=== PATIENT | male | born 1950 | race Caucasian/White ===

== ENCOUNTER 2019-12-30 04:00 | Inpatient (IN) | payer MEDICARE, OTHER ==
[2019-12-30] MEDS ORDERED: Atropine Sulfate 1 mg/10 ml Syringe ONE ×2 (04:07→10:05)
[2019-12-30] MEDS ORDERED: Norepinephrine 8 MG/0.9% NS 250 ML ONE (04:22)
[2019-12-30 04:36] LABS: #Basophils 0.1 thou/uL (0.0-0.2); #Eosinphils 0.3 thou/uL (0.0-0.7); #Lymphocytes 2.2 thou/uL (1.20-3.40); #Monocytes 0.8 thou/uL (0.11-0.59); #Neutrophils 6.8 thou/uL (1.40-6.50); %Basophils 1.1 % (0.0-1.0); %Lymphocytes 21.7 % (21.0-51.0); %Monocytes 7.8 % (0.0-10.0); %Neutrophils 66.4 % (42.0-75.0); Hemoglobin 7.4 g/dL (14.0-18.0); Mean Corpuscular HGB CONC 32.2 g/dL (32.0-36.0); Mean Corpuscular Hemoglobin 30.6 pg (27.0-31.0); Mean Platelet Volume 7.8 fL (7.4-10.4); Platelet Count 421 thou/uL (130-400); RBC Distribution Width 13.6 % (11.5-14.5); Red Blood Cell (RBC) Count 2.43 mill/uL (4.70-6.10); White Blood Cell (WBC) Count 10.2 thou/uL (4.8-10.8)
[2019-12-30] MEDS ORDERED: EPINEPHrine 1 MG/10 ML Abboject SYRINGE ONE ×2 (04:41→10:05)
[2019-12-30 04:47] LABS: INR-International Normal Ratio 1.4; PTT 35.6 sec (22.9-36.1); Prothrombin Time 17.5 sec (12.0-14.7)
[2019-12-30 04:53] LABS: ALT (SGPT) 26 U/L (8-55); AST (SGOT) 14 U/L (5-34); Albumin 2.3 g/dL (3.4-4.8); Alkaline Phosphatase 83 U/L (40-110); Anion Gap 20 mmol/L (10-20); BUN (Urea Nitrogen) 8 mg/dL (8.4-25.7); Bilirubin, Total 0.3 mg/dL (0.2-1.2); CK (CPK) 33 U/L (30-200); Calc. Creatinine Clearance 0 mL/min (70-130); Carbon Dioxide 13 mmol/L (23-31); Chloride 108 mmol/L (98-107); Estimated GFR-MDRD 60; Globulin 2.3 g/dL (2.4-3.5); Glucose 303 mg/dL (80-115); Potassium 3.4 mmol/L (3.5-5.1); Protein, Total 4.6 g/dL (5.8-8.1); Sodium 138 mmol/L (136-145)
[2019-12-30] MEDS ORDERED: EPINEPHrine 4 MG in Dextrose 5% in Water 250 ML IV SCH (05:00)
[2019-12-30 05:20] LABS: Actual Bicarbonate (HCO3a) 12.7 mEq/L (22-28); Base Excess (BEa) -13.3 mEq/L (-2.0 to +3.0); CO2 Tension 29.7 mmHg (35.0-45.0); Calcium, Ionized (arterial) 0.88 mmol/L (1.12-1.30); Carboxyhemoglobin (COHb) 0.7 gm% (0.0-3.0); Hemoglobin (Hb) 9.1 g/dL (14.0-18.0); O2 Tension (PaO2), arterial 435.3 mmHg (> 80.0)
[2019-12-30 05:21] LABS: Puncture Site RFA; pH, Arterial 7.25 (7.35-7.45)
[2019-12-30 05:22] LABS: ALV-art Gradient 240.575 (0-20)
[2019-12-30] MEDS ORDERED: Fentanyl 100 MCG/2 ML VIAL ONE (05:52)
[2019-12-30] MEDS ORDERED: Sodium Bicarb 50 MEQ/50 ML Abboject 8.4% SYRINGE ONE ×2 (06:18→10:05)
[2019-12-30] MEDS ORDERED: Norepinephrine 4 MG/4 ML VIAL ONE (06:34)
[2019-12-30] MEDS ORDERED: Fentanyl 250 MCG/5 ML VIAL ONE (06:34)
[2019-12-30] MEDS ORDERED: Midazolam HCl 2 mg/2 ml Vial ONE ×2 (06:34→08:44)
[2019-12-30] MEDS ORDERED: Sodium Bicarbonate 2.5 MEQ/5 ML VIAL ONE (06:58)
[2019-12-30] MEDS ORDERED: Sodium Bicarb 50 MEQ/50 ML VIAL ONE ×2 (06:59→08:40)
--- NOTE | 2019-12-30 07:29 | CON ---
DATE OF CONSULTATION: 12/30/2019 CONSULTING PHYSICIAN: Juan Tovar DO REASON FOR CONSULTATION: Acute abdomen, suggestion of bowel infarction. HISTORY OF PRESENT ILLNESS: The patient is a 69-year-old critically ill white male. He has a recent history of surgery for an aortic aneurysm in [place]. The family initially and said that this was a week ago, but they now believe that it may have been two weeks ago. He apparently had a couple of stents that had been placed by business services specialist sales, that were apparently infected and the family believes that these may have been removed at the time of his surgery. It sounds therefore like he may have had an aorto bi-iliac bypass. He also had his spleen removed while he was at the hospital in [place]. He was eventually discharged home where they tell me that he was doing "fine." At about 3:00 this morning, while he was getting up to go to the bathroom, he collapsed and they were unable to get him up after that. There were times when he appeared to be gasping for air thereafter. He was transported by ambulance to the hospital. He was noted to have a complete systemic collapse and he had massive transfusion protocol initiated as well as CPR. He had compressions for about 10 minutes along with numerous pressors. During the course of his transfusion, he apparently received 6 units of packed red blood cells and 6 units of FFP. Significant pressors were utilized. They eventually got back a pulse and with high-dose pressors (Levophed and epinephrine), he stabilized at a tachycardic rate of about 120 to 130. It was at this point that he was stable for a CAT scan, which was obtained, which revealed substantial fluid within the abdomen as well as suggestion of pneumatosis in several areas of the GI tract as well as portal venous gas within the liver. As he still had a spontaneous rhythm and had been resuscitated, I was contacted for surgical advice. LABORATORY DATA: Labs obtained at 4:00 this morning when he arrived, showed that he was severely acidotic with a CO2 level of 13 and a lactate of 11. His liver function tests were essentially normal. His creatinine was a little bit elevated at 1.2. His hemoglobin was low at 7.4. His blood gas, which was obtained at 4:45 showed a gas of 7.25 for the pH, pCO2 of 30, and a pO2 of 430. PAST MEDICAL HISTORY: Significant for peripheral vascular disease and aortic aneurysm and a long history of tobacco abuse. PAST SURGICAL HISTORY: He apparently has had multiple back operations including some form of a fusion. He had the abdominal aortic aneurysm surgery 1 to 2 weeks ago. MEDICATIONS: I have a list of medications that are unavailable as I am dictating this. He is on antihypertensive medications and Plavix. ALLERGIES: NO KNOWN DRUG ALLERGIES. PERSONAL AND SOCIAL HISTORY: He is , with 2 children, and they were all present at bedside. He has a long history of being a heavy smoker and he was smoking up until this recent surgery as well. He used to be a heavy drinker, not a long time. He lives in [place]. REVIEW OF SYSTEMS: Unobtainable. FAMILY HISTORY: Noncontributory. PHYSICAL EXAMINATION: VITAL SIGNS: He is currently afebrile with a pulse of 128, blood pressure is most recently 150/100, oxygen saturations 100% on a ventilator. LUNGS: Appropriately clear to auscultation. CARDIAC: Tachycardic, but regular rhythm. ABDOMEN: Appears to be very firm. Byram still intact in the midline incision. : Rizzo catheter is in place. EXTREMITIES: Unremarkable. ASSESSMENT: The patient who is critically ill and nearly terminal with an apparent intraabdominal catastrophe. In light of the portal venous gas and the changes on the CT scan, I suspect he has a bowel infarction. How much of his bowel is infarcted, to what extent is of course impossible to discern. I have spoken with the family and told him that his only chance at survival currently is to proceed with a laparotomy to discern what the current intraabdominal problem is and proceed with resection if possible. They also understands that it is possible that there would be nothing that could be done at the time of surgery and that he may not survive the surgery. [facility] was contacted before I was contacted and they said that they were unable to take him due to lack of critical care availability. I spoke with the family regarding his health and they understand and agreed to proceed with the emergency surgery this morning. Job ID: [id number]
[2019-12-30] MEDS ORDERED: Heparin 10,000 UNITS/1 ML VIAL ONE ×2 (07:38→08:01)
[2019-12-30 07:41] LABS: INR-International Normal Ratio 1.3; PTT 32.4 sec (22.9-36.1); Prothrombin Time 16.2 sec (12.0-14.7)
--- NOTE | 2019-12-30 08:01 | CT ---
CTA OF THE CHEST AND ABDOMEN UTILIZING AORTIC DISSECTION PROTOCOL AND IV CONTRAST AND 3D REFORMATTED IMAGING: INDICATION: Unresponsive, found at home making gurgling sounds COMPARISON: Prior CTA of the abdomen dated 12/09/2019, from [facility] and a CTA of th e chest, abdomen, and pelvis dated 06/28/2019 from [facility]. FINDINGS: CHEST: There are small bilateral pleural effusions and bibasilar atelectasis. There are areas of peripheral airspace opacity suspicious for edema. A component of pneumonia cannot be entirely excluded. There are coronary artery and thoracic aorta calcifications. No definite central pulmonary embolus is elder dent. The two penetrating atheromatous ulcerations involving the anterior inferior aspect of the aor tic arch are largely stable measuring 2.5 cm. No acute aortic stenosis or occlusion is seen within the thorax. Enlarged lymph nodes are evident. No pneumothorax is demonstrated. The patient is intub ated. There is a left IJ central venous catheter in place. ABDOMEN: Since the comparison examination, there has been interval revision of the patient's abdominal aortic aneurysmal endograft repair. Previously seen endograft stent has been removed. There is some mild r esidual fluid within the space surrounding the distal abdominal aorta within the retroperitoneum. Th e abdominal aortic aneurysmal repair is patent. There is a 7.4 x 14 cm intraabdominal hematoma (left anterior/lateral to abdominal aorta), adjacent to the abdominal aortic aneurysmal repair, on image 1 60 of series 2, without evidence of active extravasation. The distal abdominal aorta measures now ap proximately 3.9 x 5.2 cm in size. The celiac, SMA, and renal arteries are patent. The NATALIO is occluded but reconstitutes distally. The re has been interval development of fluid distention within the abdominal cavity that is fairly hyper dense, some of which is ascitic fluid, some of which likely reflects hemorrhage. The spleen is surgi claire absent. There has been interval development of peripheral portal venous gas within the liver. Pancreas, adrenal glands, and kidneys reveal no acute abnormality. There is stable left renal cyst. There is wall thickening with pneumotosis involving loops of ileum in the right lower quadrant of the abdomen. There is also some mild pneumotosis involving the gastric antrum on image 117 of series 2. A small amount of extraluminal gas, likely within venous structures, is seen anterior to the gastri c antrum on 112 of series 12. There is extensive postoperative change involving the lower lumbar spine. There are bone graft harve st sites involving the posterior aspect of the miriam. No definite acute osseous abnormality is eviden t. IMPRESSION: 1. Postoperative change most consistent with abdominal aortic aneurysmal repair revision with a larg e periaortic retroperitoneal and mesenteric hematoma seen adjacent to the distal abdominal aortic ane urysmal repair. The repair appears patent. There is no active extravasation within the large hemato ma. There is mild to moderate scattered hemoperitoneum. 2. Interval development of peripheral portal venous gas within the liver. There is pneumotosis invo lving the stomach as well as loops of ileum in the right lower quadrant suspicious for ischemic bowel . 3. Small bilateral pleural effusions and peripheral airspace opacity suspicious for a component of v olume overload or mild congestive heart failure. Peripheral airspace opacities can also be related t o an infectious etiology. Would recommend consideration for possible COVID testing. 4. Findings were discussed with Dr. Smith at 5:20 a.m. on 12/30/2019. CODE CR POS:
[2019-12-30] MEDS ORDERED: Calcium Chloride 1 GM/10 ML Abboject SYRINGE ONE ×3 (08:12→11:29)
[2019-12-30] MEDS ORDERED: Insulin Regular 300 UNITS/3 ML VIAL ONE (08:22)
[2019-12-30 08:29] LABS: Hemoglobin 9.8 g/dL (14.0-18.0); Mean Corpuscular HGB CONC 34.9 g/dL (32.0-36.0); Mean Corpuscular Hemoglobin 31.7 pg (27.0-31.0); Mean Corpuscular Volume 90.7 fL (78.0-98.0); Mean Platelet Volume 7.5 fL (7.4-10.4); Platelet Count 315 thou/uL (130-400); White Blood Cell (WBC) Count 23.7 thou/uL (4.8-10.8)
[2019-12-30 08:36] LABS: Band 5 % (5-11); Lymphocytes 2 % (21-51); MDiff Complete? YES; Monocytes 2 % (0-10); Neutrophil 91 % (42-75); Platelet Morphology Comment Appears Adequate; RBC Morphology Normal
--- NOTE | 2019-12-30 09:02 | RAD ---
Radiograph abdomen one view: DATE: 12/30/2019 Time: 8:47 AM HISTORY: 69-year-old male with missing item on postsurgical instrument count. FINDINGS: Midline skin jean carlos. Laminectomy defect and pedicle screws in mid and lower lumbar spine. A few surg ical clips in the left upper quadrant. Rizzo catheter balloon in bladder partially filled with excreted iodinated contrast media. Transversely and obliquely oriented linear densities in upper abdo men, including left upper quadrant. Uncertain whether these are inside or outside of the patient. Otherwise, no other radiopaque foreign body visualized. IMPRESSION: Postsurgical changes. See above comments.
[2019-12-30] MEDS ORDERED: Propofol 1,000 MG/100 ML VIAL IV ONE (09:36)
[2019-12-30] MEDS: Lactated Ringer's 1,000 ML IV SCH ×2 (09:40→21:02)
[2019-12-30] MEDS ORDERED: Ventilator Sedation Protocol 1 EACH FS ONE (09:58)
[2019-12-30] MEDS ORDERED: Propofol BOLUS 1,000 MG/100 ML VIAL IV PRN (10:02)
[2019-12-30] MEDS ORDERED: Morphine 2 MG/ML SYRINGE SLOW IVP PRN (10:02)
[2019-12-30] MEDS ORDERED: Fentanyl BOLUS 250 ML IVPB PRN (10:02)
[2019-12-30 10:08] LABS: Base Excess (BEa) 0.3 mEq/L (-2.0 to +3.0); CO2 Tension 40.6 mmHg (35.0-45.0); Calcium, Ionized (arterial) 1.29 mmol/L (1.12-1.30); Carboxyhemoglobin (COHb) 1.1 gm% (0.0-3.0); Hemoglobin (Hb) 9.4 g/dL (14.0-18.0); O2 Tension (PaO2), arterial 85.2 mmHg (> 80.0); Potassium - ABG Lab 3.32 mmol/L (3.70-5.30); pH, Arterial 7.41 (7.35-7.45)
[2019-12-30 10:11] LABS: Puncture Site ALINE
--- NOTE | 2019-12-30 10:28 | OP ---
DATE OF PROCEDURE: 12/30/2019 PREOPERATIVE DIAGNOSIS: The patient in extremis with Pneumatosis intestinalis. POSTOPERATIVE DIAGNOSIS: Abdominal hemorrhage after repair of infected endograft repair of aneurysm in [place]. PROCEDURES PERFORMED: Laparotomy with exploration, evacuation of large intraabdominal blood loss volume, control of hemorrhage from cut surfaces in mesentery. SURGEONS: Reyes Chiu MD ANESTHESIA: General endotracheal. ESTIMATED BLOOD LOSS: Unmeasurable. TRANSFUSIONS: 12 units of packed red blood cells, 2 units of platelets, 12 units of FFP, 4 units of cryo. DESCRIPTION OF PROCEDURE: We were called into the operating room. Dr. Garcia had opened this patient's abdomen. He had a recent laparotomy in [place] for removal of an infected abdominal endograft and open repair of abdominal aortic aneurysm. Dr. Garcia had encountered a large amount of blood in the abdomen when he opened the abdomen. He went to surgery under the presumption of a large volume of necrotic bowel. The patient had previously had the aorta clamped at the diaphragmatic hiatus. We were able to bluntly and using cautery, recreate this plane and clamped the aorta at the diaphragm. This allowed us to explore the previous repair. The aneurysm sac itself had been closed over the aneurysm and was large. There was significant hematoma and blood within the retroperitoneum. Once all the blood had been evacuated, the graft appeared intact. We could not find any bleeding around the graft. The clamp was removed and antegrade flow reestablished and again we cannot find any bleeding around the graft. The graft was manipulated with pressures in the 120s to 130s and there was no noted bleeding. We found multiple small bleeders in the mesentery and in the short gastrics. These were controlled with clips, [id number] suture and cautery. The splenic bed was inspected and there was no hemorrhage. Once we were satisfied that we had done everything we could to find any areas of hemorrhage, the graft was coated in vancomycin powder and the abdomen was reclosed with running looped PDS. Skin clips were then used to close the abdomen. The patient tolerated the procedure well, was transferred to the intensive care unit for further management. Job ID: [id number]
[2019-12-30] MEDS ORDERED: HUMULIN R 100 UNITS in Sodium Chloride 0.9% 100 ML IVPB SCH (10:43)
[2019-12-30] MEDS ORDERED: Norepinephrine 8 MG/0.9% NS 250 ML IVPB PRN (10:43)
[2019-12-30] MEDS ORDERED: Ondansetron PF 4 MG/2 ML Vial IVP PRN (10:43)
[2019-12-30] MEDS ORDERED: Acetaminophen 325 MG TAB PO PRN (10:43)
[2019-12-30 11:02] LABS: INR-International Normal Ratio 1.3; PTT 31.3 sec (22.9-36.1); Prothrombin Time 15.9 sec (12.0-14.7)
[2019-12-30] MEDS: fentaNYL Citrate/PF 2,000 MCG in Sodium Chloride 0.9% 60 ML IV SCH (11:08)
--- NOTE | 2019-12-30 11:08 | RAD ---
CHEST 1 VIEW: INDICATION: History of intubation. COMPARISON: Chest radiograph dated 04/19/2019. FINDINGS: The patient is intubated with ET tube tip seen at 5.8 cm above the level of the tobias. There is a r ight-sided PICC line in place. The tip of the catheter is seen in the cavoatrial junction. No conso lidation, pleural effusion, or pneumothorax is evident. IMPRESSION: 1. No acute airspace disease, pleural effusion, or pneumothorax is evident. 2. Endotracheal tube and right-sided PICC line. POS:
--- NOTE | 2019-12-30 11:10 | RAD ---
CHEST 1 VIEW: INDICATION: Central line placement. COMPARISON: Prior exam dated 12/30/2019 at 3:34 a.m. FINDINGS: There has been interval placement of a left internal jugular central venous catheter. There is a rig ht-sided PICC line in place. There is an endotracheal tube in place. There is no consolidation or p neumothorax demonstrated. Right costophrenic angle is excluded. IMPRESSION: New left internal jugular central venous catheter. No pneumothorax. POS: BH
[2019-12-30] MEDS ORDERED: Vecuronium 10 MG VIAL ONE (11:29)
[2019-12-30] MEDS ORDERED: Rocuronium Bromide 10 MG/ML (10ML VIAL) ONE (11:29)
--- NOTE | 2019-12-30 11:40 | RAD ---
RADIOGRAPH CHEST 1 VIEW: DATE: 12/30/2019 11:23 AM HISTORY: 69-year-old male status post central line placement COMPARISON: 12/30/2019 4:18 AM FINDINGS: The thoracic aorta is tortuous and ectatic. There is no evidence of airspace density, pulmonary edema , or pneumothorax. Endotracheal tube remains with tip at mid thoracic trachea. Right-sided PICC remains with tip at SVC/right atrial junction. Left central vascular catheter descending from the nec k, crossing the upper mediastinum with distal tip overlying the right lateral upper mediastinum, remains. No cardiomegaly. There has been no interval change overall. IMPRESSION: 1) No acute pulmonary findings. 2) ectasia of thoracic aorta. 3) no change in life support lines since 4:18 AM
[2019-12-30 13:15] LABS: Anion Gap 13 mmol/L (10-20); BUN (Urea Nitrogen) 11 mg/dL (8.4-25.7); Calc. Creatinine Clearance 0 mL/min (70-130); Calcium 9.2 mg/dL (7.8-10.44); Carbon Dioxide 24 mmol/L (23-31); Chloride 110 mmol/L (98-107); Estimated GFR-MDRD 69; Glucose 152 mg/dL (80-115); Potassium 3.4 mmol/L (3.5-5.1); Sodium 144 mmol/L (136-145)
[2019-12-30 13:32] LABS: Band 40 % (5-11); Hemoglobin 9.5 g/dL (14.0-18.0); Lymphocytes 1 % (21-51); MDiff Complete? YES; Mean Corpuscular HGB CONC 35.5 g/dL (32.0-36.0); Mean Corpuscular Hemoglobin 31.2 pg (27.0-31.0); Mean Corpuscular Volume 87.9 fL (78.0-98.0); Mean Platelet Volume 8.2 fL (7.4-10.4); Monocytes 7 % (0-10); Neutrophil 51 % (42-75); Platelet Count 187 thou/uL (130-400); Platelet Morphology Comment Appears Adequate; Polychromasia SLIGHT = 2-3 cells (100X) (0-2/hpf); RBC Distribution Width 14.4 % (11.5-14.5); Reactive Lymphocytes 1 % (0-10); Red Blood Cell (RBC) Count 3.05 mill/uL (4.70-6.10)
[2019-12-30] MEDS ORDERED: Iopamidol-370 76% 500 ML 1 ML ONE (13:38)
[2019-12-30] MEDS ORDERED: Meropenem 1 GM in Sodium Chloride 0.9% 100 ML IVPB SCH (15:00)
[2019-12-30] MEDS: MEROPENEM 1 GM/50 ML 1 GM in Premix Bag 1 BAG IVPB SCH ×2 (15:37→23:04)
[2019-12-30 15:40] LABS: Hemoglobin 10.1 g/dL (14.0-18.0); Platelet Count 185 thou/uL (130-400)
[2019-12-30] MEDS: CEFAZOLIN 2 GM in Premix Bag 1 BAG IVPB SCH (15:41)
[2019-12-30] MEDS ORDERED: Insulin Regular 300 UNITS/3 ML VIAL SC PRN (15:58)
--- NOTE | 2019-12-30 17:07 | CON ---
DATE OF CONSULTATION: HISTORY OF PRESENT ILLNESS: Yeyo Vallejo is a 69-year-old gentleman, intubated on the vent, sedated. History is such that he recently underwent repair for an abdominal aortic aneurysm nonsurgically. Stent was placed and apparently this got infected. He eventually went to [place] and apparently underwent a lap for infected mesh. Surgery was done. Last night, he presented with hypotension. Trying to transfer to [facility], they refused because of their critical care capacity. [facility] apparently declined to take the patient . He underwent emergency laparotomy over a year ago. No source of bleeding was done. Cardiovascular surgery in the OR intraoperatively is unclear, but no obvious source of infarction was seen, no obvious source of bleeding was seen. He is a critically ill and terminally ill patient. PAST MEDICAL HISTORY: Pertinent for previous tobacco abuse, peripheral vascular disease, aortic aneurysm. He received large volume of blood, 12 units of packed cells, 2 units of platelets, 12 units of fresh frozen, 4 units of cryo, large intraabdominal blood volume loss from cut surfaces in the mesentery apparently. He is now in the ICU and intubated on the vent. SOCIAL HISTORY: He has a history of smoking. I am going to try to get additional information from his as they arrive. REVIEW OF SYSTEMS: Unobtainable. PHYSICAL EXAMINATION: VITAL SIGNS: Pulse 123, blood pressure 130/80, respirations 20, afebrile. CHEST: Decreased breath sounds. Bilateral rhonchi. CARDIAC: Normal S1 and S2. No gallops. ABDOMEN: No masses. LABORATORY DATA: His white count 20,000, H and H are 9 and 28, platelet count 315. His PO2 is 85, pCO2 of 40, , pH 7.45, rate of 14, PEEP 5, 40%. Glucose 188. Massive intraabdominal hemorrhage, etiology unclear. CT revealing evidence of infarcted bowel and ischemic bowel. Pneumatosis seen in the loops of ileum in the right lower quadrant suspicious for ischemic bowel. Chest x-ray was unremarkable. IMPRESSION: 1. Shock volume loss, etiology unclear. 2. Recent abdominal aortic aneurysm repair following failed endovascular graft infected with abdominal bleed. 3. Tobacco abuse. 4. Coagulopathy. PLAN: At this stage, continue vent support, is clearly not weanable until he stabilizes, then follow up. This is a 45-minute critical care time. Job ID: [id number]
[2019-12-30] MEDS: Vancomycin 1.5 GRAM/300 ML BAG 1.5 GM in Premix Bag 1 BAG IVPB SCH (21:01)
[2019-12-31] MEDS: CEFAZOLIN 2 GM in Premix Bag 1 BAG IVPB SCH ×2 (00:14→07:39)
[2019-12-31 06:56] LABS: Hemoglobin 9.1 g/dL (14.0-18.0); Mean Corpuscular HGB CONC 35.4 g/dL (32.0-36.0); Mean Corpuscular Hemoglobin 31.6 pg (27.0-31.0); Mean Corpuscular Volume 89.4 fL (78.0-98.0); Mean Platelet Volume 8.4 fL (7.4-10.4); Platelet Count 207 thou/uL (130-400); Red Blood Cell (RBC) Count 2.86 mill/uL (4.70-6.10); White Blood Cell (WBC) Count 32.5 thou/uL (4.8-10.8)
[2019-12-31] MEDS: fentaNYL Citrate/PF 2,000 MCG in Sodium Chloride 0.9% 60 ML IV SCH (06:58)
[2019-12-31] MEDS: Propofol 1,000 MG/100 ML VIAL IV PRN ×2 (06:58→18:15)
[2019-12-31] MEDS: Lactated Ringer's 1,000 ML IV SCH ×2 (06:58→16:39)
[2019-12-31 07:12] LABS: Anion Gap 13 mmol/L (10-20); BUN (Urea Nitrogen) 20 mg/dL (8.4-25.7); Calc. Creatinine Clearance 64 mL/min (70-130); Carbon Dioxide 26 mmol/L (23-31); Chloride 110 mmol/L (98-107); Estimated GFR-MDRD 46; Glucose 139 mg/dL (80-115); Potassium 3.7 mmol/L (3.5-5.1); Sodium 145 mmol/L (136-145)
[2019-12-31 07:39] LABS: Actual Bicarbonate (HCO3a) 23.1 mEq/L (22-28); Base Excess (BEa) 0.2 mEq/L (-2.0 to +3.0); CO2 Tension 30.7 mmHg (35.0-45.0); Calcium, Ionized (arterial) 1.11 mmol/L (1.12-1.30); Carboxyhemoglobin (COHb) 0.4 gm% (0.0-3.0); Hemoglobin (Hb) 9.2 g/dL (14.0-18.0); Potassium - ABG Lab 3.45 mmol/L (3.70-5.30); pH, Arterial 7.49 (7.35-7.45)
[2019-12-31] MEDS: Pantoprazole 40 MG VIAL IVP SCH (07:39)
[2019-12-31] MEDS: Lorazepam 2 MG/ML VIAL SLOW IVP PRN (07:39)
[2019-12-31 07:48] LABS: Band 15 % (5-11); Lymphocytes 4 % (21-51); MDiff Complete? YES; Monocytes 7 % (0-10); Neutrophil 74 % (42-75); Platelet Morphology Comment Appears Adequate; Polychromasia SLIGHT = 2-3 cells (100X) (0-2/hpf)
[2019-12-31 08:25] LABS: O2 Tension (PaO2), arterial 55.7 mmHg (> 80.0); Puncture Site ALINE
[2019-12-31 08:26] LABS: ALV-art Gradient 191.125 (0-20)
[2019-12-31] MEDS: MEROPENEM 1 GM/50 ML 1 GM in Premix Bag 1 BAG IVPB SCH ×3 (09:04→22:00)
[2019-12-31] MEDS: Vancomycin 1.5 GRAM/300 ML BAG 1.5 GM in Premix Bag 1 BAG IVPB SCH ×2 (09:07→18:14)
--- NOTE | 2019-12-31 09:52 | RAD ---
CHEST 1 VIEW: INDICATION: History of intubation. COMPARISON: Prior exam dated 12/28/2019. IMPRESSION: There are worsening perihilar airspace opacities. There is persistent cardiomegaly and pulmonary vas cular congestion. There are tiny bilateral pleural effusions that appear slightly more pronounced on the prior. There is a right-sided PICC line in place. ET tube and gastric catheter are unchanged. No pneumothorax is demonstrated. POS: BH
--- NOTE | 2019-12-31 13:13 | PRG ---
DATE OF SERVICE: 12/31/2019 SUBJECTIVE: This morning, he remains in ICU, intubated, looks ashen. OBJECTIVE: VITAL SIGNS: His temperature is 97, pulse is 112, blood pressure is , temperature is 100.4. I's and O's, he is having large amount of stool. He is on lactated Ringer's 100 an hour, broad-spectrum antibiotics. CHEST: Extensive rhonchi. CARDIAC: Sinus tach. ABDOMEN: Soft, distended. LABORATORY DATA: White count 13,000, H and H of 9 and 25, platelet count is 207. PO2 is 55, pCO2 is 30%, , 40%, PEEP of 5. Sodium is 145, creatinine is 1.5. Bicarb is 26. ASSESSMENT: Abdominal sepsis, status post lap, recent aortic aneurysm repair, renal failure, respiratory failure. PLAN: He is clearly not weanable. Continue broad-spectrum antibiotics, meropenem, and vancomycin. Trial of fluids. Ongoing leukocytosis. He may require reexploration. TIME SPENT: One-half hour of critical care time. Job ID: [id number]
--- NOTE | 2019-12-31 14:09 | PRG ---
DATE OF SERVICE: 12/31/2019 SUBJECTIVE: Mr. Vallejo remains in the Intensive Care Unit on a ventilator. He remains sedated with propofol. He has required no pressor administration. He has been hemodynamically stable. He was transfused with a unit of blood postoperatively yesterday, but I am told he has received nothing subsequently. His hemoglobin yesterday afternoon was 10.1 and this morning it is 9.1. On examination, he is sedated on the ventilator. He is tachycardic with a heart rate of approximately 120. Blood pressure is 117/80. His urine output is stable at about 30 mL/h. His urine output for all day yesterday was 655. He has been having a large volume of liquid stool and had a rectal tube placed, from which they are persisted being further relatively foul smelling liquid stool. OBJECTIVE: LUNGS: Clear to auscultation. ABDOMEN: Relatively soft with dressings intact. No bowel sounds are appreciated. LABORATORY DATA: His white blood cell count is elevated at 32.5, hemoglobin is 9.1, platelet count is 207. He has 15% bandemia. His chemistry showed that his creatinine is up to 1.5. It was normal yesterday. His electrolytes are more or less stable. ASSESSMENT: The patient is stable following a massive bleed. Unusually, the source of that bleeding could not be discerned at the time of surgery yesterday. He did have a large volume hemoperitoneum. He did not appear to have an active leak from his vascular anastomoses. I am uncertain why he has a liquid stool. His carbon dioxide is 26, therefore he does not appear to be acidotic currently. His pH on his blood gas is 7.5 as well. He currently appears to have no definitive general surgical issues. If he does develop any concerns regarding possible bowel ischemia, then I would certainly be happy to see him again. Otherwise, I will see him as needed and request that I will be consulted should a surgeon input be required. Job ID: [id number]
--- NOTE | 2019-12-31 16:06 | OP ---
DATE OF PROCEDURE: 12/30/2019 PREOPERATIVE DIAGNOSES: Hemodynamic instability, severe acidosis, suspected necrotic bowel, successful recent CPR with compressions, massive transfusion, and pressor administration. POSTOPERATIVE DIAGNOSES: Extensive hemoperitoneum of uncertain etiology, presumed to be related to his recent abdominal aortic aneurysm repair. PROCEDURES PERFORMED: Exploratory laparotomy with evacuation of over 3 L of intraabdominal blood and clot, intraoperative consultation with Dr. Reyes Chiu and Dr. Steve Shah of Cardiothoracic Surgery. INDICATIONS: The patient is a 69-year-old white male, who had undergone repair of an infected aortic endograft that had been placed a few years previously. He apparently had this removed and had repair of his aortic aneurysm, performed with a graft in [place] either one or two weeks previously. Earlier this morning, the patient had collapsed and was brought to the emergency room, at which point he declined until he developed pulseless electric activity, at which time he underwent CPR with compressions and pressor administration, coupled with initiation of massive transfusion protocol. Prior to being brought to the operating room, the patient had already received 6 units of packed red blood cells and 6 units of FFP. He was on a Levophed and epinephrine drip at the time of his transfer to the operating room. CT scan had been obtained, revealing portal venous gas within the liver as well as what appeared to be pneumatosis within different segments of the bowel. He was taken to the operating room to discern the extent of the ischemic process and whether anything could be done about this. DESCRIPTION OF OPERATION: Informed consent was obtained. The patient was taken to the operating room, where general endotracheal anesthesia was obtained with the patient in supine position. Abdomen was prepped with ChloraPrep and draped in sterile fashion. The prior skin jean carlos were removed. Subcutaneous sutures were removed and the fascial sutures were incised, given access to the intraabdominal contents. The entire abdominal wound was opened from the xiphoid down to the pubis. There was no evidence of ischemic bowel or foul smell within the abdomen. There was a significant amount of blood. I began to aspirate the contents. There was a substantial amount of clotted blood, particularly old blood within the pelvis. There was fresher bright red blood and clot throughout the abdomen and a significant amount of blood up within the splenic bed. There was a large firm mass to the left of midline that appeared to be consistent with the retroperitoneum. There were negligible adhesions to the anterior abdominal wall and these were all lysed. There were interloop adhesions as well as adhesions to the retroperitoneum. After aspirating all blood and removing all clot, the liver was examined and it was felt to be unremarkable. I began to inspect the colon and the sigmoid colon extended up to the left colon appeared to be viable. It was approximately this time that I noted a substantial volume of blood oozing from a rent in the retroperitoneum in the lower aspect of the abdomen. This had probably occurred during attempts to visualization of the bowel. The blood from this area was actually welling up. I packed as well as I could into this area and held pressure and contacted Cardiothoracic Surgery. Dr. Wolf had been made aware of this patient overnight, but he was not in-house yet. Dr. Chiu was in-house and graciously presented to the operating room and scrubbed into the operation. Examination within the abdomen revealed no evidence of acute ischemic disease of the stomach, small bowel, or colon. The entirety of the GI tract was not evaluable. After Dr. Chiu presented, shortly thereafter, Dr. Shah presented as well, and I scrubbed out of the operation. They continued from a vascular standpoint as there appeared to be no intestinal/ischemic problems from myself to address. Remainder of the operation will be dictated by Cardiothoracic Surgery. At the time that I left the operation, well over 3 L of blood and clot had been removed. Job ID: [id number]
[2020-01-01] MEDS: Propofol 1,000 MG/100 ML VIAL IV PRN ×4 (00:57→19:56)
[2020-01-01] MEDS: Lactated Ringer's 1,000 ML IV SCH ×3 (00:58→22:14)
[2020-01-01 04:46] LABS: Anion Gap 12 mmol/L (10-20); BUN (Urea Nitrogen) 24 mg/dL (8.4-25.7); Calc. Creatinine Clearance 79 mL/min (70-130); Carbon Dioxide 25 mmol/L (23-31); Chloride 109 mmol/L (98-107); Estimated GFR-MDRD 59; Glucose 123 mg/dL (80-115); Potassium 3.1 mmol/L (3.5-5.1); Sodium 143 mmol/L (136-145)
[2020-01-01] MEDS: fentaNYL Citrate/PF 2,000 MCG in Sodium Chloride 0.9% 60 ML IV SCH (04:52)
[2020-01-01] MEDS: MEROPENEM 1 GM/50 ML 1 GM in Premix Bag 1 BAG IVPB SCH ×3 (05:35→22:00)
[2020-01-01 05:44] LABS: Band 14 % (5-11); Eosinophils 1 % (0-10); Hemoglobin 7.8 g/dL (14.0-18.0); Lymphocytes 3 % (21-51); MDiff Complete? YES; Mean Corpuscular HGB CONC 34.7 g/dL (32.0-36.0); Mean Corpuscular Hemoglobin 31.4 pg (27.0-31.0); Mean Corpuscular Volume 90.4 fL (78.0-98.0); Mean Platelet Volume 8.3 fL (7.4-10.4); Monocytes 3 % (0-10); Neutrophil 79 % (42-75); Platelet Count 217 thou/uL (130-400); RBC Distribution Width 14.8 % (11.5-14.5); Red Blood Cell (RBC) Count 2.47 mill/uL (4.70-6.10); White Blood Cell (WBC) Count 37.1 thou/uL (4.8-10.8)
--- NOTE | 2020-01-01 07:18 | RAD ---
CHEST 1 VIEW: INDICATION: History of intubation. COMPARISON: Prior exam dated 12/31/2019. FINDINGS: Left IJ central venous catheter and right-sided PICC line are stable-appearing. Gastric catheter and endotracheal tube are unchanged. Cardiomegaly, pulmonary vascular congestion, and central edema pat tern are stable. Tiny bilateral pleural effusions persist. No pneumothorax is evident. IMPRESSION: Stable exam. POS: BH
[2020-01-01] MEDS: Pantoprazole 40 MG VIAL IVP SCH (07:37)
[2020-01-01 08:13] LABS: Actual Bicarbonate (HCO3a) 24.5 mEq/L (22-28); Analyzer IN Cardio OR; Base Excess (BEa) 0.4 mEq/L (-2.0 to +3.0); CO2 Tension 36.8 mmHg (35.0-45.0); Calcium, Ionized (arterial) 1.12 mmol/L (1.12-1.30); Carboxyhemoglobin (COHb) 1.1 gm% (0.0-3.0); Hemoglobin (Hb) 7.7 g/dL (14.0-18.0); O2 Tension (PaO2), arterial 88.1 mmHg (> 80.0); Potassium - ABG Lab 3.11 mmol/L (3.70-5.30); pH, Arterial 7.44 (7.35-7.45)
[2020-01-01 08:18] LABS: Puncture Site RR
--- NOTE | 2020-01-01 10:00 | PRG ---
DATE OF SERVICE: 01/01/2020 SUBJECTIVE: This morning, he is intubated in the vent, sedated, on Diprivan and fentanyl. X-ray shows a slight haziness in both lungs, but no obvious consolidation. His I's and O's have been consistently negative. He is still having stools. Diarrhea was better. OBJECTIVE: CHEST: Bilateral rhonchi. CARDIAC: Sinus tach. ABDOMEN: Soft, distended. EXTREMITIES: Trace edema. NEUROLOGIC: Pupils are equal. LABORATORY DATA: PO2 is 88, pCO2 50%, PEEP of 5. White count 37,000, hemoglobin and hematocrit 7 and 21, platelet count 17. ASSESSMENT AND PLAN: 1. Status post emergency lap for acute abdomen. 2. Recent abdominal aortic aneurysm surgery for infected graft. 3. Metabolic encephalopathy. 4. Azotemia. Continue meropenem, adjust for present renal failure ongoing issues regarding the abdomen. He is being transfused. We are trying to get him to [place], where he has original surgery. He may require re-exploration at some stage. He is probably going to need some TPN at some stage. One-half hour of critical time. Job ID: [id number]
--- NOTE | 2020-01-01 15:12 | PQF ---
DATE: 01-01-20 ATTN: DR. DAV NEWBY Please exercise your independent, professional judgment in responding to the clarification form. Clinical indicators are provided on the bottom of this form for your review Please check appropriate box(es): [ ] Sepsis present on admission [ x ] Sepsis NOT present on admission Due to: [ ] Graft [ ] Severe sepsis present on admission [ x ] Severe Sepsis NOT present on admission with acute organ dysfunction of: ____ [ ] Septic Shock present on Admission [x ] Septic Shock NOT present on Admission [ ] Localized infection without sepsis [ x ] Other diagnosis ___hypovolemic shock [ ] Unable to determine For continuity of documentation, please document condition throughout progress notes and discharge summary. Thank You. CLINICAL INDICATORS - SIGNS / SYMPTOMS / LABS / RESULTS AND LOCATION IN MR: WBC: 12-30-19: 10.2, 23.7, 29.0, 12-31-19: 32.5 01-01-20: 37.1 BANDS: 12-30-19: 5%, 40% 12-31-19: 15% 01-01-20: 14% LACTIC ACID: 12-30-19: 11.0 DR. NEWBY 12-30-19: ACUTE ABDOMEN, SUGGESTION OF BOWEL INFARCTION, INTRAABDOMINAL CATASTROPHE, SUSPECT BOWEL INFARCTION. OP NOTE DR. ANDUJAR 12-30-19: LAP WITH EXPLORATION, EVACUATION OF LARGE INTRAABDOMINAL BLOOD LOSS VOLUME, CONTROL OF HEMORRHAGE FROM CUT SURFACES IN MESENTERY. CONSULT NOTE DR. MCQUEEN 12-31-19: ABDOMINAL SEPSIS, STATUS POST LAP, RECENT AORTIC ANEURYSM REPAIR, RENAL FAILURE, RESPIRATORY FAILURE. TEMP: 12-30-19: 99.0, 99.3 12-31-19: 100.5 PULSE: 12-30-19: 136, 131, 115 RISK FACTORS / RESULTS AND LOCATION IN MR: DR. NEWBY 12-30-19: ACUTE ABDOMEN, SUGGESTION OF BOWEL INFARCTION, INTRAABDOMINAL CATASTROPHE, SUSPECT BOWEL INFARCTION. OP NOTE DR. ANDUJAR 12-30-19: LAP WITH EXPLORATION, EVACUATION OF LARGE INTRAABDOMINAL BLOOD LOSS VOLUME, CONTROL OF HEMORRHAGE FROM CUT SURFACES IN MESENTERY. CONSULT NOTE DR. MCQUEEN 12-31-19: ABDOMINAL SEPSIS, STATUS POST LAP, RECENT AORTIC ANEURYSM REPAIR, RENAL FAILURE, RESPIRATORY FAILURE. TREATMENTS / RESULTS AND LOCATION IN MR: OP NOTE DR. ANDUJAR 12-30-19: LAP WITH EXPLORATION, EVACUATION OF LARGE INTRAABDOMINAL BLOOD LOSS VOLUME, CONTROL OF HEMORRHAGE FROM CUT SURFACES IN MESENTERY. MAR: 12-30-19: MEROPENEM IV, VANCOMYCIN IV, LR IVF, PROPOFOL IV (This form is maintained as a part of the permanent medical record) 2014 [employer]. All Rights Reserved [email or web address] [email or web address]
--- NOTE | 2020-01-01 15:36 | PQF ---
DATE: 01-01-20 ATTN: DR. DASHA NEWBY Please exercise your independent, professional judgment in responding to the clarification form. Clinical indicators are provided on the bottom of this form for your review Please check appropriate box(s): [ x ] Hypovolemic Shock [ ] Cardiogenic Shock [ ] Septic Shock [ ] Hemorrhagic Shock [ ] Other diagnosis [ ] Unable to determine In addition, please specify: Present on Admission (POA): [x ] Yes [ ] No [ ] Unable to determine For continuity of documentation, please document condition throughout progress notes and discharge summary. Thank You. CLINICAL INDICATORS - SIGNS / SYMPTOMS / LABS / RESULTS AND LOCATION IN MR: DR. NEWBY 12-30-19: WAS NOTED TO HAVE COMPLETE SYSTEMIC COLLAPSE AND HE HAD MASSIVE TRANSFUSION PROTOCOL INITIATED WELL CPR. RECEIVED 6 UNITS OF PRBC AND 6 UNITS OF FFP. SIGNIFICANT PRESSORS WERE UTILIZED, SEVERELY ACIDOTIC WITH A CO2 LEVEL OF 13 AND LACTATE OF 11. CONSULT NOTE DR. MCQUEEN 12-30-19: SHOCK VOLUME LOSS, ETIOLOGY UNCLEAR HH: 12-30-19: 7.4/23.1 RISK FACTORS / RESULTS AND LOCATION IN MR: CONSULT NOTE DR. MCQUEEN 12-30-19: SHOCK VOLUME LOSS, ETIOLOGY UNCLEAR CONSULT NOTE DR MCQUEEN 12-31-19: ABDOMINAL SEPSIS, S/P LAP, RECENT AORTIC ANEURYSM REPAIR, RENAL FAILURE, RESPIRATORY FAILURE DR. NEWBY 12-30-19: WAS NOTED TO HAVE COMPLETE SYSTEMIC COLLAPSE AND HE HAD MASSIVE TRANSFUSION PROTOCOL INITIATED WELL CPR. RECEIVED 6 UNITS OF PRBC AND 6 UNITS OF FFP. SIGNIFICANT PRESSORS WERE UTILIZED, SEVERELY ACIDOTIC WITH A CO2 LEVEL OF 13 AND LACTATE OF 11. TREATMENTS / RESULTS AND LOCATION IN MR: MONITORING IN ICU MAR: 12-30-19: LR IVF, MEROPENEM IV, VANCOMYCIN IV, PROPOFOL OP NOTE DR. ANDUJAR 12-30-19: LAP WITH EXP, EVACUATION OF LARGE INTRAABDOMINAL BLOOD LOSS VOLUME, CONTROL OF HEMORRHAGE FROM CUT SURFACES IN MESENTERY. (This form is maintained as a part of the permanent medical record) 2014 [employer]. All Rights Reserved SHANNON [email or web address] [facility]
[2020-01-01] MEDS: Vancomycin 1.5 GRAM/300 ML BAG 1.5 GM in Premix Bag 1 BAG IVPB SCH (17:21)
[2020-01-02] MEDS: fentaNYL Citrate/PF 2,000 MCG in Sodium Chloride 0.9% 60 ML IV SCH (00:19)
[2020-01-02] MEDS: Propofol 1,000 MG/100 ML VIAL IV PRN ×3 (01:59→20:54)
[2020-01-02 05:05] LABS: Anion Gap 10 mmol/L (10-20); Calc. Creatinine Clearance 94 mL/min (70-130); Calcium 8.4 mg/dL (7.8-10.44); Carbon Dioxide 27 mmol/L (23-31); Chloride 109 mmol/L (98-107); Estimated GFR-MDRD 72; Glucose 94 mg/dL (80-115); Potassium 3.1 mmol/L (3.5-5.1); Sodium 143 mmol/L (136-145)
[2020-01-02 05:11] LABS: BUN (Urea Nitrogen) 22 mg/dL (8.4-25.7); Band 23 % (5-11); Hemoglobin 8.5 g/dL (14.0-18.0); Lymphocytes 1 % (21-51); MDiff Complete? YES; Mean Corpuscular HGB CONC 33.1 g/dL (32.0-36.0); Mean Corpuscular Hemoglobin 30.3 pg (27.0-31.0); Mean Corpuscular Volume 91.5 fL (78.0-98.0); Mean Platelet Volume 8.3 fL (7.4-10.4); Monocytes 6 % (0-10); Neutrophil 69 % (42-75); Platelet Count 245 thou/uL (130-400); Platelet Morphology Comment Appears Adequate; RBC Distribution Width 14.4 % (11.5-14.5)
[2020-01-02] MEDS: MEROPENEM 1 GM/50 ML 1 GM in Premix Bag 1 BAG IVPB SCH ×3 (05:34→21:58)
[2020-01-02] MEDS: Pantoprazole 40 MG VIAL IVP SCH (07:33)
--- NOTE | 2020-01-02 07:48 | RAD ---
EXAM: Single view of the chest HISTORY: Ventilated patient with respiratory failure COMPARISON: 01/01/2020 FINDINGS: Single view of the chest shows a normal sized cardiomediastinal silhouette. Lines and tube s are unchanged in position. There are bilateral veil-like opacities which likely represent layering pleural effusions. The bones are unremarkable. IMPRESSION: Stable bilateral pleural effusions.
[2020-01-02 08:32] LABS: Actual Bicarbonate (HCO3a) 23.9 mEq/L (22-28); Base Excess (BEa) 0.2 mEq/L (-2.0 to +3.0); CO2 Tension 34.9 mmHg (35.0-45.0); Calcium, Ionized (arterial) 1.19 mmol/L (1.12-1.30); Hemoglobin (Hb) 8.4 g/dL (14.0-18.0); O2 Tension (PaO2), arterial 70.3 mmHg (> 80.0); Potassium - ABG Lab 2.89 mmol/L (3.70-5.30); pH, Arterial 7.45 (7.35-7.45)
[2020-01-02 08:33] LABS: ALV-art Gradient 171.275 (0-20); Puncture Site RR
--- NOTE | 2020-01-02 10:08 | PRG ---
DATE OF SERVICE: 01/02/2020 SUBJECTIVE: A 69-year-old gentleman. He opens his eyes. Sedated on Diprivan and fentanyl. OBJECTIVE: VITAL SIGNS: On 40% FiO2, saturations are 100%, temperature 98, blood pressure 148/71, pulse 101. His I's and O's have been consistently ahead. CHEST: Decreased breath sounds. No wheezing. CARDIAC: Normal S1 and S2. No gallops. ABDOMEN: No masses. LABORATORY DATA: X-ray shows small bilateral pleural effusion. His white count 31,000, , platelet count is normal. Lytes are normal. IMPRESSION: Status post lap, status post infected abdominal aortic aneurysm, status post surgery in [place] with encephalopathy, respiratory failure, slow wean. His primary goal he needs nutrition, TPN. Otherwise, continue broad-spectrum antibiotics for his leukocytosis. Continue neb treatments. Pulmonary/Critical Care is following. One-half hour of critical care time. Job ID: [id number]
[2020-01-02] MEDS: Lactated Ringer's 1,000 ML IV SCH (12:13)
[2020-01-02 12:20] LABS: SARS-CoV-2 MS2 Positive; SARS-CoV-2 N Gene Negative; SARS-CoV-2 S Gene Negative; SARS-CoV-2 orf1ab Negative
[2020-01-02] MEDS: Vancomycin 1.5 GRAM/300 ML BAG 1.5 GM in Premix Bag 1 BAG IVPB SCH ×2 (13:25→23:13)
--- NOTE | 2020-01-02 17:27 | PRG ---
DATE OF SERVICE: 01/02/2020 SUBJECTIVE: Mr. Vallejo is postoperative day #3 following laparotomy, evacuation of a large volume hemoperitoneum, and massive transfusion. He had CPR with compressions for at least 10 minutes before he went to surgery. He appears to be hemodynamically stable. He has required no recent transfusions. He is off pressors. He does open his eyes to stimulation, but does not respond to any questions or react appropriately. He does not nod, make eye contact, or follow instructions. OBJECTIVE: VITAL SIGNS: He is afebrile, pulse is in the 60s when he is not stimulated and goes up to 100 when he is stimulated, blood pressure is 169/84. LUNGS: Clear to auscultation anteriorly. CARDIAC: Regular rate and rhythm. ABDOMEN: Nondistended. Dressings intact. Bowel sounds are absent. LABORATORY DATA: Basic metabolic panel shows that he is hypokalemic with a potassium at 3.1, his creatinine is normal at 1.3, glucose is 94. CBC shows a white blood cell count of 34, hemoglobin of 8.5, platelet count of 245, 23% bandemia. ASSESSMENT: The patient, as mentioned, is hemodynamically stable. He does not appear to be bleeding at all since surgery. He does not have any renal insufficiency. It is possible that he has suffered anoxic brain injury secondary to his long episode of resuscitation. Today, I will initiate some TPN for nutritional support and replace his potassium. Job ID: [id number]
[2020-01-02] MEDS ORDERED: Electrolyte Replacement Protocol FS PRN (17:30)
[2020-01-02] MEDS ORDERED: Potassium Chloride 40 MEQ in Sodium Chloride 0.9% 250 ML 250 ML IVPB SCH (17:30)
[2020-01-02] MEDS: [UNRECOGNIZED DRUG - OTHER] IV SCH (21:58)
[2020-01-02] MEDS: MULTIVITAMINS IV SCH (21:58)
[2020-01-02] MEDS: SODIUM ACETATE IV SCH (21:58)
[2020-01-02] MEDS: POTASSIUM CHLORIDE IV SCH (21:58)
[2020-01-03] MEDS: Propofol 1,000 MG/100 ML VIAL IV PRN ×4 (04:27→22:26)
[2020-01-03] MEDS: fentaNYL Citrate/PF 2,000 MCG in Sodium Chloride 0.9% 60 ML IV SCH (04:27)
[2020-01-03 04:28] LABS: #Basophils 0.1 thou/uL (0.0-0.2); #Eosinphils 1.8 thou/uL (0.0-0.7); #Lymphocytes 2.2 thou/uL (1.20-3.40); #Monocytes 1.5 thou/uL (0.11-0.59); #Neutrophils 17.9 thou/uL (1.40-6.50); %Basophils 0.4 % (0.0-1.0); %Eosinophils 7.8 % (0.0-10.0); %Lymphocytes 9.4 % (21.0-51.0); %Monocytes 6.3 % (0.0-10.0); %Neutrophils 76.1 % (42.0-75.0); Hemoglobin 8.7 g/dL (14.0-18.0); Mean Corpuscular HGB CONC 32.9 g/dL (32.0-36.0); Mean Corpuscular Hemoglobin 30.2 pg (27.0-31.0); Mean Corpuscular Volume 91.8 fL (78.0-98.0); Mean Platelet Volume 7.7 fL (7.4-10.4); Platelet Count 319 thou/uL (130-400); Red Blood Cell (RBC) Count 2.86 mill/uL (4.70-6.10); White Blood Cell (WBC) Count 23.5 thou/uL (4.8-10.8)
[2020-01-03 04:51] LABS: Albumin 2.5 g/dL (3.4-4.8)
[2020-01-03 04:53] LABS: Anion Gap 9 mmol/L (10-20); BUN (Urea Nitrogen) 20 mg/dL (8.4-25.7); Calc. Creatinine Clearance 126 mL/min (70-130); Carbon Dioxide 27 mmol/L (23-31); Chloride 111 mmol/L (98-107); Estimated GFR-MDRD Greater than 90; Glucose 138 mg/dL (80-115); Magnesium 1.7 mg/dL (1.6-2.6); Potassium 3.4 mmol/L (3.5-5.1); Sodium 144 mmol/L (136-145)
[2020-01-03 04:59] LABS: Phosphorus 1.9 mg/dL (2.3-4.7)
[2020-01-03] MEDS ORDERED: Potassium Phosphate 15 MMOL in Sodium Chloride 0.9% 100 ML IVPB SCH (05:30)
[2020-01-03] MEDS ORDERED: Potassium Chloride 20 MEQ in Premix Bag 1 BAG IVPB SCH (05:30)
[2020-01-03] MEDS: Lactated Ringer's 1,000 ML IV SCH ×2 (05:48→15:17)
[2020-01-03] MEDS: MEROPENEM 1 GM/50 ML 1 GM in Premix Bag 1 BAG IVPB SCH ×3 (06:11→22:26)
[2020-01-03 08:03] LABS: Actual Bicarbonate (HCO3a) 24.3 mEq/L (22-28); Base Excess (BEa) 0.7 mEq/L (-2.0 to +3.0); CO2 Tension 35.1 mmHg (35.0-45.0); Carboxyhemoglobin (COHb) 0.3 gm% (0.0-3.0); Hemoglobin (Hb) 8.8 g/dL (14.0-18.0); O2 Tension (PaO2), arterial 96.6 mmHg (> 80.0); Potassium - ABG Lab 3.57 mmol/L (3.70-5.30); pH, Arterial 7.46 (7.35-7.45)
[2020-01-03 08:08] LABS: Puncture Site RR
[2020-01-03 08:09] LABS: ALV-art Gradient 144.725 (0-20)
[2020-01-03] MEDS ORDERED: Magnesium 2 GM/50 ML 2 GM in Premix Bag 1 BAG IVPB SCH (09:00)
--- NOTE | 2020-01-03 09:16 | PRG ---
DATE OF SERVICE: 01/03/2020 SUBJECTIVE: Yeyo Vallejo is a 69-year-old gentleman, who is intubated on the vent. OBJECTIVE: VITAL SIGNS: Pulse of 111, blood pressure 180/96, temperature is 99. Sats on 40%, 100%. His I's and O's have been consistently positive. CHEST: Extensive rhonchi and crackles, minimal wheezing CARDIAC: Normal S1 and S2. Negative masses. LABORATORY DATA: White count has decreased to 23,000, H and H . Platelet count is normal. His lytes are normal. His PO2 is 96, pCO2 is 35, pH is 7.45. ASSESSMENT: 1. Abdominal sepsis. 2. Acute abdomen. 3. Status post repair for an infected abdominal aortic graft requiring surgical intervention in [place] and [facility]. He may require re-exploration for presumed bleeding. No source was found. The patient remains on the vent, encephalopathic. Unless his neurological status improves, he is not weanable. He was started on TPN yesterday, still on broad-spectrum antibiotics. All cultures are negative. We will continue empiric antibiotics. Vancomycin is ordered. Avoid sedation. One-half hour of critical care time. Job ID: [id number]
[2020-01-03] MEDS: Pantoprazole 40 MG VIAL IVP SCH (10:17)
[2020-01-03 10:27] LABS: Vancomycin, Trough 26.8 ug/mL
[2020-01-03 10:58] LABS: Actual Bicarbonate (HCO3a) 20.7 mEq/L (22-28); Analyzer IN Cardio OR; Base Excess (BEa) -5.9 mEq/L (-2.0 to +3.0); CO2 Tension 46.5 mmHg (35.0-45.0); Calcium, Ionized (arterial) 0.94 mmol/L (1.12-1.30); Carboxyhemoglobin (COHb) 0.6 gm% (0.0-3.0); Hemoglobin (Hb) 8.1 g/dL (14.0-18.0); O2 Tension (PaO2), arterial 181.2 mmHg (> 80.0); Potassium - ABG Lab 3.56 mmol/L (3.70-5.30); pH, Arterial 7.27 (7.35-7.45)
[2020-01-03 10:58] LABS: Analyzer IN Cardio OR; CO2 Tension 45.5 mmHg (35.0-45.0); Calcium, Ionized (arterial) 1.05 mmol/L (1.12-1.30); Carboxyhemoglobin (COHb) 0.4 gm% (0.0-3.0); Hemoglobin (Hb) 10.1 g/dL (14.0-18.0); Potassium - ABG Lab 3.24 mmol/L (3.70-5.30); pH, Arterial 7.32 (7.35-7.45)
[2020-01-03 10:59] LABS: Actual Bicarbonate (HCO3a) 20.3 mEq/L (22-28); Analyzer IN Cardio OR; Base Excess (BEa) -4.4 mEq/L (-2.0 to +3.0); CO2 Tension 35.7 mmHg (35.0-45.0); Calcium, Ionized (arterial) 0.91 mmol/L (1.12-1.30); Carboxyhemoglobin (COHb) 1.3 gm% (0.0-3.0); O2 Tension (PaO2), arterial 332.6 mmHg (> 80.0); Potassium - ABG Lab 3.57 mmol/L (3.70-5.30); pH, Arterial 7.37 (7.35-7.45)
[2020-01-03 10:59] LABS: Actual Bicarbonate (HCO3a) 21.4 mEq/L (22-28); Analyzer IN Cardio OR; Base Excess (BEa) -4.5 mEq/L (-2.0 to +3.0); CO2 Tension 43.2 mmHg (35.0-45.0); Calcium, Ionized (arterial) 1.07 mmol/L (1.12-1.30); Carboxyhemoglobin (COHb) 0.8 gm% (0.0-3.0); Hemoglobin (Hb) 9.1 g/dL (14.0-18.0); O2 Tension (PaO2), arterial 302.2 mmHg (> 80.0); Potassium - ABG Lab 3.03 mmol/L (3.70-5.30); pH, Arterial 7.31 (7.35-7.45)
[2020-01-03] MEDS: Vancomycin 1.5 GRAM/300 ML BAG 1.5 GM in Premix Bag 1 BAG IVPB SCH (11:00)
[2020-01-03 11:02] LABS: Actual Bicarbonate (HCO3a) 22.8 mEq/L (22-28); Analyzer IN Cardio OR; Base Excess (BEa) -4.2 mEq/L (-2.0 to +3.0); Calcium, Ionized (arterial) 1.16 mmol/L (1.12-1.30); Carboxyhemoglobin (COHb) 0.4 gm% (0.0-3.0); Hemoglobin (Hb) 11.8 g/dL (14.0-18.0); O2 Tension (PaO2), arterial 220.9 mmHg (> 80.0); Potassium - ABG Lab 3.42 mmol/L (3.70-5.30); Puncture Site ALINE; pH, Arterial 7.28 (7.35-7.45)
[2020-01-03 11:07] LABS: Puncture Site ALINE
[2020-01-03 11:07] LABS: Puncture Site ALINE
[2020-01-03 11:07] LABS: Puncture Site ALINE
[2020-01-03 11:08] LABS: Puncture Site ALINE
[2020-01-03] MEDS ORDERED: VANCOMYCIN IVPB PRN (11:13)
[2020-01-03 12:39] LABS: Potassium 3.5 mmol/L (3.5-5.1)
--- NOTE | 2020-01-03 13:22 | PRG ---
DATE OF SERVICE: 01/03/2020 SUBJECTIVE: Mr. Vallejo is postoperative day #4 following laparotomy and evacuation of large volume of hemoperitoneum and massive transfusion. He had CPR with compressions for at least 10 minutes before he went to surgery. He currently is hemodynamically stable. He is sedated on the ventilator. He shows no signs of recognition of those around him or intentional movement or following instructions. He required sedation, and without sedation, he becomes very tachycardic and hypertensive. He has not required transfusion since the day of his surgery. His hemoglobin today is 8.7, up from 8.5 yesterday. OBJECTIVE: VITAL SIGNS: Temperature is 99.0, pulse currently is 70 with a blood pressure of 143/85. His urine output yesterday was 1800. He had 600 mL of stool apparently as well as 300 mL of NG output. LUNGS: Clear to auscultation. ABDOMEN: Soft with nicely healed incision. He has no bowel sounds. He has no reaction to palpation to suggest tenderness. LABORATORY DATA: As mentioned, his hemoglobin is stable. His white blood cell count is down from 34 to 23.5. Platelet count is stable at 319. His electrolytes show mild abnormality with the potassium that is a little bit low at 3.4. His phosphorus is a little bit low at 1.9. His pre-albumin is low at 11.0. ASSESSMENT: The patient is currently stable on the ventilator. As I have referenced each the last few days, I am concerned regarding the possibility of ischemic or anoxic encephalopathy. He is currently getting an EEG and a Neurology consult is pending. Since I do not hear any bowel sounds, I suspect he has a normal postoperative ileus and I would recommend continuation of TPN as opposed to tube feeds until there is evidence of bowel function. Since he now appears to be hemodynamically stable, if he does in fact have a severe encephalopathy, then he will require placement for long-term care. This may or may not involve a tracheostomy or a feeding tube. Apparently, a meeting with family is planned in the near future. Job ID: [id number]
[2020-01-03 13:46] VITALS: BMI 30.3
--- NOTE | 2020-01-03 14:07 | EEG ---
DATE OF SERVICE: 01/03/2020 ATTENDING PHYSICIAN: Beth Call MD. This EEG was performed using 24-channel [employer] video digital EEG machine with 24-disk electrodes. This was an extended 2-hour 11-minute of inpatient video EEG recording. Digital analysis of the EEG was done for spike and seizure detection, which revealed no abnormalities. BACKGROUND: The posterior background rhythm was not observed. HYPERVENTILATION: Not performed. PHOTIC STIMULATION: No significant response seen with photic stimulation. SLEEP: No stage change was observed. EEG DIAGNOSIS: 1. Generalized irregular delta theta activity seen throughout the recording. 2. Absence of posterior background rhythm. CLINICAL INTERPRETATION: This EEG is consistent with severe generalized nonspecific cerebral dysfunction. No ictal or interictal epileptiform abnormality seen during the recording. Job ID: [id number]
--- NOTE | 2020-01-03 14:10 | CON ---
DATE OF CONSULTATION: 01/03/2020 REASON FOR CONSULTATION: Anoxic brain injury HISTORY OF PRESENT ILLNESS: Mr. Vallejo is a 69-year-old male with medical history significant for peripheral vascular disease, aortic aneurysm, status post repair , and history of GI bleed, consulted for prognosis. The patient has had a recent repair of abdominal aortic aneurysm. Aneurysm stent was placed at [facility] and he got infected and went to [place] and underwent the laparoscopy for infected mesh, surgery was done and then he presented to the [facility] on 12/30/2019 with hypotension and was found to have GI bleed. He received 12 units of packed red blood cells, 2 units of platelets, 12 units of frozen plasma, 4 units of cryo and was transferred to ICU. He was intubated to protect airway and since then the patient has been intubated and sedated with no neurological improvement. Neurology was consulted for prognosis. REVIEW OF SYSTEMS: Unobtainable due to mental status. PAST MEDICAL HISTORY: Peripheral vascular disease, aortic aneurysm, status post repair, and GI bleed. SOCIAL HISTORY: The patient does have history of smoking. , lives with his . FAMILY HISTORY: No significant family history according to records. PAST SURGICAL HISTORY: Surgical repair of abdominal aortic aneurysm. ALLERGIES; NKDA PHYSICAL EXAMINATION: GENERAL: The patient is sedated and intubated. CVS: Regular rate and rhythm. CHEST: Clear. ABDOMEN: Soft. NECK: No carotid bruit. NEUROLOGIC: Mental status; the patient is intubated and sedated. Does not follow commands. Does not maintain eye contact. Does not respond to verbal stimuli or noxious stimuli. Cranial nerves; pupils, 4 mm, round, and reactive to light. Face symmetric. Tongue midline. No gaze preference. Corneals positive. Gag positive. Motor; muscle tone and bulk are normal. No spontaneous movement seen. Sensory, minimal withdrawal of all 4 extremities to nailbed pressure, lower extremities more than upper extremities. Cerebellar could not be assessed secondary to mental status. Gait could not be assessed secondary to mental status. DATA REVIEW: I reviewed the labs, results noted. Chest x-ray reviewed, which was unremarkable. ASSESSMENT AND PLAN: Mr. Yeyo Vallejo is consulted for prognosis. The patient does have the long-tract signs and brainstem reflexes. Currently on sedation, so this is not a reliable exam. Repeat neuro exam will be done for 24 hours postsedation; However, since no significant improvement seen since admission, the chances of function meaningful recovery seems grave. EEG reviewed and negative for seizure activity. Consider head CT to rule out acute intracranial process. Neuro checks every 4 hours. Continue medical management by Primary Team and supportive measures. Plan discussed with the nursing staff. Thank you for the consult. Job ID: [id number] MTDD
[2020-01-03] MEDS ORDERED: Vancomycin 1 GM/200 ML BAG ONE (22:02)
[2020-01-03] MEDS: MULTIVITAMINS IV SCH (22:26)
[2020-01-03] MEDS: SODIUM ACETATE IV SCH (22:26)
[2020-01-03] MEDS: POTASSIUM CHLORIDE IV SCH (22:26)
[2020-01-03] MEDS: [UNRECOGNIZED DRUG - OTHER] IV SCH (22:26)
[2020-01-03] MEDS: Vancomycin 1 GM in Premix Bag 1 BAG IVPB SCH (22:27)
[2020-01-04] MEDS: fentaNYL Citrate/PF 2,000 MCG in Sodium Chloride 0.9% 60 ML IV SCH ×2 (03:38→23:27)
[2020-01-04] MEDS: Lactated Ringer's 1,000 ML IV SCH (03:39)
[2020-01-04 04:42] LABS: #Eosinphils 2.6 thou/uL (0.0-0.7); #Lymphocytes 1.9 thou/uL (1.20-3.40); #Monocytes 1.5 thou/uL (0.11-0.59); #Neutrophils 13.7 thou/uL (1.40-6.50); %Basophils 0.2 % (0.0-1.0); %Lymphocytes 9.8 % (21.0-51.0); %Monocytes 7.5 % (0.0-10.0); %Neutrophils 69.4 % (42.0-75.0); Hemoglobin 7.9 g/dL (14.0-18.0); Mean Corpuscular HGB CONC 33.4 g/dL (32.0-36.0); Mean Corpuscular Hemoglobin 30.9 pg (27.0-31.0); Mean Corpuscular Volume 92.5 fL (78.0-98.0); Mean Platelet Volume 7.6 fL (7.4-10.4); Platelet Count 328 thou/uL (130-400); RBC Distribution Width 13.8 % (11.5-14.5); Red Blood Cell (RBC) Count 2.56 mill/uL (4.70-6.10); White Blood Cell (WBC) Count 19.7 thou/uL (4.8-10.8)
[2020-01-04 04:58] LABS: Anion Gap 8 mmol/L (10-20); BUN (Urea Nitrogen) 21 mg/dL (8.4-25.7); Calc. Creatinine Clearance 150 mL/min (70-130); Carbon Dioxide 28 mmol/L (23-31); Chloride 110 mmol/L (98-107); Estimated GFR-MDRD Greater than 90; Glucose 122 mg/dL (80-115); Magnesium 1.9 mg/dL (1.6-2.6); Potassium 3.6 mmol/L (3.5-5.1); Sodium 142 mmol/L (136-145)
[2020-01-04 05:14] LABS: Phosphorus 1.9 mg/dL (2.3-4.7)
[2020-01-04] MEDS ORDERED: Magnesium 2 GM/50 ML 2 GM in Premix Bag 1 BAG IVPB SCH (05:30)
[2020-01-04 06:00] LABS: Actual Bicarbonate (HCO3a) 25.4 mEq/L (22-28); Analyzer IN Cardio ER; Base Excess (BEa) 0.8 mEq/L (-2.0 to +3.0); CO2 Tension 40.5 mmHg (35.0-45.0); Calcium, Ionized (arterial) 1.19 mmol/L (1.12-1.30); Carboxyhemoglobin (COHb) 0.3 gm% (0.0-3.0); O2 Tension (PaO2), arterial 96.4 mmHg (> 80.0); pH, Arterial 7.42 (7.35-7.45)
[2020-01-04] MEDS ORDERED: Potassium Phosphate 15 MMOL in Sodium Chloride 0.9% 100 ML IVPB SCH (06:00)
[2020-01-04 06:01] LABS: ALV-art Gradient 102.525 (0-20); Puncture Site RRA
[2020-01-04] MEDS: MEROPENEM 1 GM/50 ML 1 GM in Premix Bag 1 BAG IVPB SCH ×3 (06:10→22:02)
[2020-01-04] MEDS ORDERED: hydrALAZINE 20 MG/ML VIAL SLOW IVP PRN ×2 (08:32)
[2020-01-04] MEDS: Pantoprazole 40 MG VIAL IVP SCH (09:01)
[2020-01-04] MEDS: Propofol 1,000 MG/100 ML VIAL IV PRN ×2 (09:04→18:20)
--- NOTE | 2020-01-04 10:40 | PRG ---
DATE OF SERVICE: 01/04/2020 SUBJECTIVE: Mr. Vallejo is an unfortunate 69-year-old gentleman, who underwent abdominal aortic aneurysm stenting and then had a number of complications. He had an open repair at [facility] and then is admitted here following a collapse at home, at which time he had a massive amount of abdominal bleeding. Since the surgery, he has not had neurologic recovery and an EEG was done yesterday demonstrating an irregular delta-theta activity consistent with severe generalized nonspecific condition. He has also had Neurology consultation, at which time continued evaluation of sedation is recommended. There is, however, general feeling that significant recovery is unlikely given progress to this point. He remains on TPN for postop ileus. He is moderately hypertensive with stimulation and shows associated tachycardia. PHYSICAL EXAMINATION: VITAL SIGNS: Blood pressure currently 168/105, heart rate 92, saturation 100%. He is intubated, receiving ventilatory support including a rate of 10, tidal volume 500, and FiO2 of 35%. HEENT: He does not respond to stimuli except for occasional grimace. NECK: He has no adenopathy. LUNGS: Show rhonchi, but no wheezing or rales. HEART: Regular rate and rhythm. ABDOMEN: Mildly distended. Postsurgical, there is no drainage. Bowel sounds are not heard. EXTREMITIES: Show 1+ edema. NEUROLOGIC: Shows no response to verbal stimuli and only minimal to pain. LABORATORY DATA: White count 19,700 down from maximum of 37,000 three days ago. Hemoglobin is 7.9 with hematocrit 23.7, platelet count 328,000. Couple of days ago, he had a significant elevation in bands to 23%. Blood gas today includes pH 7.42, CO2 of 41, pO2 of 96, bicarbonate 25. Chemistries notable for sodium 142, potassium 3.6, chloride 110, CO2 is 28, BUN 21, and creatinine 0.6. The EEG report is as above. IMPRESSION: 1. 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 This represents an extremely poor prognosis. 2. Aneurysm repair with complications requiring repeat interventions. He still has significant postop ileus and is on TPN. 3. Anemia. 4. Leukocytosis. He is on broad antibiotics in light of recent significant elevation in band count. PLAN: I have had a conversation with the patient's daughter. I have informed her that he has not yet shown any evidence of neurologic recovery and prognosis to return to his previous baseline is extremely poor. At this point, the family wishes ongoing resuscitative aggressive measures, stating that the patient "has always been a fighter." TPN continues. At this point, transfusion has not been provided with a goal of keeping hemoglobin greater than 7. Additional intervention will be based on his clinical course. Critical care rendered today 35 minutes. Job ID: [id number]
[2020-01-04] MEDS: Vancomycin 1 GM in Premix Bag 1 BAG IVPB SCH ×2 (11:58→22:02)
--- NOTE | 2020-01-04 16:55 | EKG ---
Test Reason : Blood Pressure : / mmHG Vent. Rate : 093 BPM Atrial Rate : 093 BPM P-R Int : 172 ms QRS Dur : 092 ms QT Int : 374 ms P-R-T Axes : 046 -66 075 degrees QTc Int : 465 ms Normal sinus rhythm Left axis deviation Incomplete right bundle branch block ST depression, consider subendocardial injury or digitalis effect Abnormal ECG Confirmed by SAMMY DIAS M.D. ([id number]), film and video editor DIANE ACE ([id number]) on 01/04/2020 4:55:25 PM Referred By: Confirmed By:SAMMY DIAS M.D.
[2020-01-04] MEDS: MULTIVITAMINS IV SCH (22:02)
[2020-01-04] MEDS: POTASSIUM CHLORIDE IV SCH (22:02)
[2020-01-04] MEDS: [UNRECOGNIZED DRUG - OTHER] IV SCH (22:02)
[2020-01-04] MEDS: SODIUM ACETATE IV SCH (22:02)
[2020-01-05 04:21] LABS: Anion Gap 8 mmol/L (10-20); BUN (Urea Nitrogen) 18 mg/dL (8.4-25.7); Calc. Creatinine Clearance 147 mL/min (70-130); Calcium 7.9 mg/dL (7.8-10.44); Carbon Dioxide 29 mmol/L (23-31); Chloride 108 mmol/L (98-107); Estimated GFR-MDRD Greater than 90; Glucose 127 mg/dL (80-115); Potassium 3.9 mmol/L (3.5-5.1); Sodium 141 mmol/L (136-145)
[2020-01-05 04:34] LABS: Band 13 % (5-11); Eosinophils 6 % (0-10); Hemoglobin 8.3 g/dL (14.0-18.0); Lymphocytes 11 % (21-51); MDiff Complete? YES; Mean Corpuscular HGB CONC 33.5 g/dL (32.0-36.0); Mean Corpuscular Hemoglobin 31.1 pg (27.0-31.0); Mean Corpuscular Volume 92.9 fL (78.0-98.0); Mean Platelet Volume 7.8 fL (7.4-10.4); Monocytes 7 % (0-10); Neutrophil 63 % (42-75); Platelet Count 382 thou/uL (130-400); Platelet Morphology Comment Appears Adequate; RBC Distribution Width 13.9 % (11.5-14.5); Red Blood Cell (RBC) Count 2.66 mill/uL (4.70-6.10); White Blood Cell (WBC) Count 20.5 thou/uL (4.8-10.8)
[2020-01-05] MEDS: Propofol 1,000 MG/100 ML VIAL IV PRN ×3 (05:11→17:35)
[2020-01-05 05:19] LABS: Actual Bicarbonate (HCO3a) 28.9 mEq/L (22-28); CO2 Tension 39.5 mmHg (35.0-45.0); Calcium, Ionized (arterial) 1.19 mmol/L (1.12-1.30); Carboxyhemoglobin (COHb) 0.3 gm% (0.0-3.0); Hemoglobin (Hb) 8.6 g/dL (14.0-18.0); O2 Tension (PaO2), arterial 99.8 mmHg (> 80.0); Potassium - ABG Lab 3.97 mmol/L (3.70-5.30); pH, Arterial 7.48 (7.35-7.45)
[2020-01-05 05:40] LABS: Puncture Site LRA
[2020-01-05 05:41] LABS: ALV-art Gradient 100.375 (0-20)
[2020-01-05] MEDS: MEROPENEM 1 GM/50 ML 1 GM in Premix Bag 1 BAG IVPB SCH ×2 (06:20→15:42)
[2020-01-05] MEDS ORDERED: Lorazepam 2 MG/ML VIAL ONE (08:20)
[2020-01-05] MEDS: Lorazepam 2 MG/ML VIAL SLOW IVP PRN ×2 (08:23→16:26)
--- NOTE | 2020-01-05 08:58 | PRG ---
DATE OF SERVICE: 01/05/2020 SUBJECTIVE: Mr. Vallejo had not shown any significant change in the preceding 24 hours. However, this morning, he is noted to have fine tremor/seizure-type movement of the right upper extremity. I initially thought it might involve the face, but it appears to be isolated to the arm. To the best of my review, he does not have a past seizure history. He has not had any further bleeding over the past 24 hours. Blood pressure and hemodynamics are stable. PHYSICAL EXAMINATION: VITAL SIGNS: Blood pressure 152/66, heart rate is 82, oxygen saturation 100% on the ventilator at 35%. HEENT: Eyes, open to stimulus, but he does not track. LUNGS: Bronchial breath sounds. He has sustained a ventilator. HEART: Regular rate and rhythm. I do not hear a murmur. ABDOMEN: Soft, postsurgical there is no drainage. I do not hear any bowel sounds. EXTREMITIES: Shows increasing edema. There is some asymmetry of swelling in his arms, the right being more swollen than the left. He has a midline catheter/PICC placed in the right upper arm. He is currently receiving fluids through a central line rather than through that line. As noted above, he is having what appears to be focal seizures of the right upper extremity. There is minimal response to pain. LABORATORY DATA: White count 20,500, unchanged. Hemoglobin is 8.3 with hematocrit 27.4, platelet count 382,000. He still has 13% bands, 63 neutrophils. Blood gas includes pH 7.48, CO2 of 39, PO2 of 100, bicarbonate 28. This was obtained with a rate of 10, tidal volume 500. Lytes include sodium 141, potassium 3.9, chloride 108, CO2 of 29, BUN 18, creatinine 0.6. Chest x-ray is not obtained today. IMPRESSION: 1. Probable seizure of the right upper extremity. Much faster than typical tremor-type seizure. We will give him some Ativan. He is probably going to need a CAT scan. This to me is a hominis sign since he has not shown any awakening since the time of his surgery suggesting that he has underlying hypoxic [employer] injury. The family states that he has had difficulty in "coming out of anesthesia" in the past, but this is not really consistent with that type of postop encephalopathy. 2. Status post complex abdominal aortic aneurysm stenting, then repair and associated complications. 3. Postop ileus. PLAN: I am going to give him some Ativan for what appears to be seizures. He is going to need a CAT scan. I will try to talk to the family when the arrives to let her know of this change. He was seen 2 days ago by Neurology and I anticipate that they will hopefully see him again soon and render ongoing impression and recommendations. His condition remains critical and critical care time rendered today is 32 minutes. Job ID: [id number]
[2020-01-05] MEDS: Pantoprazole 40 MG VIAL IVP SCH (09:07)
[2020-01-05] MEDS: Vancomycin 1 GM in Premix Bag 1 BAG IVPB SCH (11:55)
--- NOTE | 2020-01-05 14:01 | PDOC.HOSPP ---
- Subjective Encounter Date: 01/05/20 Subjective: NEUROLOGY PROGRESS NOTE Patient had muscle jerks noted of RUE. Bilateral muscle jerks noted during rounds of both UE provoled by stimulus. 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 - Objective Vital Signs & Weight: Vital Signs (12 hours) Temp Pulse Resp BP Pulse Ox 01/05/20 12:00 22 H 01/05/20 11:00 98.7 F 01/05/20 10:49 80 144/75 H 01/05/20 10:00 20 01/05/20 08:04 82 152/66 H 01/05/20 08:00 15 01/05/20 07:44 100 01/05/20 07:00 98.9 F 01/05/20 06:00 15 01/05/20 04:00 99.3 F 01/05/20 02:37 87 138/71 01/05/20 02:00 16 Weight Admit Weight 211 lb Weight 230 lb 13.184 oz Most Recent Monitor Data Heart Rate from ECG 92 NIBP 155/75 NIBP BP-Mean 101 Respiration from ECG 12 SpO2 100 I&O: 01/04/20 01/05/20 01/06/20 06:59 06:59 06:59 Intake Total 4425.5 1746.9 Output Total 1635 3455 625 Balance 2790.5 -1708.1 -625 Result Diagrams: 01/05/20 03:15 01/05/20 03:15 Additional Labs: Accuchecks 01/05/20 01/05/20 01/05/20 12:52 06:10 00:37 POC Glucose 153 H 139 H 136 H Radiology Reviewed by me: Yes EKG Reviewed by me: Yes Hospitalist ROS - Review of Systems ROS unobtainable: due to mental status (intubated and sedated.) - Medication Medications: Active Medications Generic Name Dose Route Start Last Admin Trade Name Freq PRN Reason Stop Dose Admin Albuterol/Ipratropium 3 ml 01/02/20 13:00 01/05/20 08:03 Duoneb NEB 3 ml [id number] RILEY Administration Hydralazine HCl 10 mg 01/04/20 08:32 01/04/20 10:05 Apresoline SLOW IVP 10 mg Q6H PRN Administration to keep sbp <160 Hydralazine HCl 20 mg 01/04/20 08:32 01/04/20 16:59 Apresoline SLOW IVP 20 mg Q6H PRN Administration to keep sbp <160 Fentanyl Citrate 2,000 mcg/ 100 mls @ 0 mls/hr 12/30/19 10:02 01/04/20 23:27 Sodium Chloride IV 01/29/20 10:02 100 mls INF RILEY Administration Protocol Per Protocol Meropenem 1 gm/ Device 50 mls @ 100 mls/hr 12/30/19 15:00 01/05/20 06:20 IVPB 50 mls 0700,1500,2300 RILEY Administration Sodium Acetate 40 meq/ 2,321.2 mls @ 96.717 mls/hr 01/02/20 22:00 01/04/20 22 :02 Potassium Chloride 80 meq/ IV 2,321.2 mls Multivitamins 10 ml/ Chromium/ 2200 RILEY Administration Copper/Manganese/Seleni/Zn 1 ml/ Insulin Human Regular 20 units/ Amino Acids/ Electrolytes/ Fat Emulsion Intravenous Vancomycin HCl 1 gm/ Device 200 mls @ 200 mls/hr 01/03/20 23:00 01/05/20 11: 55 IVPB 200 mls 1100,2300 RILEY Administration Insulin Human Regular 0 units 12/30/19 15:58 01/03/20 13:31 Humulin R SC 2 unit .MILD SLIDING PRN Administration MILD SLIDING SCALE Protocol Lorazepam 2 mg 12/30/19 10:02 01/05/20 08:23 Ativan SLOW IVP 01/29/20 10:02 2 mg Q1H PRN Administration Breakthrough agitation Pantoprazole Sodium 40 mg 12/31/19 09:00 01/05/20 09:07 Protonix IVP 40 mg DAILY RILEY Administration Propofol 1,000 mg 12/30/19 10:02 01/05/20 11:55 Diprivan IV 01/29/20 10:02 1,000 mg INF PRN Administration TO ACHIEVE GOAL RASS Protocol - Exam General Appearance: ill appearing Eye: PERRL Eye - other findings: corneals positive ENT: normocephalic atraumatic ENT - other findings: gag positive Neck: supple Heart: RRR Respiratory: CTAB Gastrointestinal: soft Extremities: no cyanosis Skin: normal turgor Neurological: no focal deficits, no new deficit Musculoskeletal - other findings: minimal withdrawal of all 4 extremities to nailbed pressure Psychiatric: somnolent, lethargic (sedated) Hosp A/P (1) AMS (altered mental status) Code(s): R41.82 - ALTERED MENTAL STATUS, UNSPECIFIED Status: Acute (2) Myoclonus Code(s): G25.3 - MYOCLONUS Status: Acute (3) GI bleed Code(s): K92.2 - GASTROINTESTINAL HEMORRHAGE, UNSPECIFIED Status: Acute - Plan 69 year old with altered mental staus due to excessive GI bleed. No neurological recovery since admission. Still on sedation. He still has long tract signs and brainstem reflexes but chances of functional meaningful recovery looks grave. Stimulus induced myoclonus. Recommend Head CT to rule out anoxic brain injury. EEG in AM. Neurochecks every 4 hours. Continue medical management per primary team. Plan discussed with the nursing staff.
[2020-01-05 15:26] VITALS: BP 122/69
[2020-01-05 15:34] VITALS: TEMP 98.8
--- NOTE | 2020-01-05 15:57 | CT ---
CT HEAD WITHOUT CONTRAST: Indications: Unresponsive. 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 There is a focal lucency in the brain stem at the level of the mary, left of mid line, consistent with a brain stem infarct, age indeterminate. No evidence of hemorrhage or mass. No evidence of cortical infarct seen above the tentorium. IMPRESSION: 1. Areas of lucency in both cerebellar hemisphere suggest cerebellar infarcts. Evidence of an brain s tem infarct which is age indeterminate. This may be remote. 2. No acute infarct or hemorrhage seen above the tentorium. POS: AGW
== END 2020-01-05 17:51 | disposition short-term general hospital (02) | DRG 907 ==
LOC: ERS 04:00 → SDC 06:30 → CCU 07:45
PROVIDERS: ADMIT Specialist; ATTEND Specialist
PROC: 0WCH0ZZ Extirpation of Matter from Retroperitoneum, Open Approach (ICD-10-PCS; principal; 2019-12-30)
PROC: 0W3G0ZZ Control Bleeding in Peritoneal Cavity, Open Approach (ICD-10-PCS; 2019-12-30)
PROC: 5A1955Z Respiratory Ventilation, Greater than 96 Consecutive Hours (ICD-10-PCS; 2019-12-30)
PROC: 0BH17EZ Insertion of Endotracheal Airway into Trachea, Via Natural or Artificial Opening (ICD-10-PCS; 2019-12-30)
PROC: 02HV33Z Insertion of Infusion Device into Superior Vena Cava, Percutaneous Approach (ICD-10-PCS; 2019-12-30)
PROC: 5A12012 Performance of Cardiac Output, Single, Manual (ICD-10-PCS; 2019-12-30)
PROC: 3E043XZ Introduction of Vasopressor into Central Vein, Percutaneous Approach (ICD-10-PCS; 2019-12-30)
PROC: 30243L1 Transfusion of Nonautologous Fresh Plasma into Central Vein, Percutaneous Approach (ICD-10-PCS; 2019-12-30)
PROC: 30243N1 Transfusion of Nonautologous Red Blood Cells into Central Vein, Percutaneous Approach (ICD-10-PCS; 2019-12-30)
PROC: 30243K1 Transfusion of Nonautologous Frozen Plasma into Central Vein, Percutaneous Approach (ICD-10-PCS; 2019-12-30)
PROC: 30243M1 Transfusion of Nonautologous Plasma Cryoprecipitate into Central Vein, Percutaneous Approach (ICD-10-PCS; 2019-12-30)
PROC: 30243R1 Transfusion of Nonautologous Platelets into Central Vein, Percutaneous Approach (ICD-10-PCS; 2019-12-30)
DX: K91.841 Postprocedural hemorrhage of a digestive system organ or structure following other procedure (principal); A41.9 Sepsis, unspecified organism; R65.21 Severe sepsis with septic shock; Z11.59 Encounter for screening for other viral diseases; G93.41 Metabolic encephalopathy; R57.1 Hypovolemic shock; K66.1 Hemoperitoneum; J96.90 Respiratory failure, unspecified, unspecified whether with hypoxia or hypercapnia; R40.2212 Coma scale, best verbal response, none, at arrival to emergency department; D68.9 Coagulation defect, unspecified; K56.7 Ileus, unspecified; G93.1 Anoxic brain damage, not elsewhere classified; R40.2142 Coma scale, eyes open, spontaneous, at arrival to emergency department; R40.2332 Coma scale, best motor response, abnormal flexion, at arrival to emergency department; Y83.8 Other surgical procedures as the cause of abnormal reaction of the patient, or of later complication, without mention of misadventure at the time of the procedure; G25.3 Myoclonus; N19 Unspecified kidney failure; Z98.1 Arthrodesis status; Z78.1 Physical restraint status; Z87.891 Personal history of nicotine dependence
CPT/HCPCS: 31500; 36415; 36416; 36430; 36556; 70450; 71045; 71275; 72191; 74018; 74175; 80048; 80053; 80202; 82040; 82550; 82805; 83605; 83735; 83880; 84100; 84134; 84443; 85025; 85610; 85730; 86850; 86900; 86901; 87040; 87070; 87205; 87324; 87449; 87635; 92950; 93005; 94002; 94003; 94640; 95712; 95816; 95819; 95957; 96365; 96366; 96368; 96375; 96376; 99292; C9113; J0171; J0360; J0461; J0690; J1644; J1815; J2060; J2185; J2250; J2704; J3010; J3370; J3475; J3480; J3490; J7050; J7070; J7620; P9012; P9016; P9035; P9045; P9048; P9059; Q9967; U0003